=== PATIENT | female | born 1965 | race Caucasian/White ===

== ENCOUNTER 2016-12-11 09:17 | Emergency (ER) | payer MEDICARE, OTHER ==
[~2016-12-11] VITALS: Ht 162.6 cm; Wt 50.0 kg
[~2016-12-11 09:17] MED LIST: DEXT15TA PO; GUAI600; GUAISOL PO; NORC7.5T PO; TIOT18I; VALI10TA PO; ZITH250T PO
[2016-12-11 09:19] VITALS: BP 137/76; PULSE 95; RESP 20; TEMP 97.5; O2SAT 99
[2016-12-11] MEDS ORDERED: SODIUM CHLORIDE 0.9% FLUSH 5 ML FLUSH IVF PRN (09:30)
[2016-12-11] MEDS ORDERED: SPIRCAP INH (09:36)
[2016-12-11] MEDS ORDERED: ADDE30TA PO (09:36)
[2016-12-11 09:47] VITALS: O2SAT 96
--- NOTE | 2016-12-11 09:52 | PD ---
HPI Chief Complaint: Flank/Kidney Pain Time Seen by Provider: 09:32 Travel History International Travel<30 days: No Contact w/Intl Traveler<30days: No Traveled to known affect area: No History of Present Illness HPI Patient 51-year-old female with a history of kidney stones presents with few days history of right flank pain fever to 101 last night. She states this feels different than a kidney stone. Denies any dysuria. Does endorse vaginal bleeding which started 3 weeks ago. States she is postmenopausal. Denies any dysuria denies any vaginal discharge. States she told her primary care physician about the vaginal bleeding and they had recommended that she be evaluated by an [facility] which she has not done yet. She does endorse some mild nausea without vomiting. Denies any IV drug use. States pain is coming going. PFSH Past Medical History ADHD: Yes COPD: Yes Musculoskeletal: Yes (chronic pain) Respiratory: Yes (EMPHYSEMA) Influenza Vaccination: No ?: Not Menopausal: Yes : 2 Para: 1 Miscarriage: 1 : 0 Tubal Ligation: Yes Past Surgical History Joint Replacement: Yes (BILATERAL THUMBS) Social History Alcohol Use: Yes (SOCIALLY) Tobacco Use: Yes (OCCASIONAL) Substance Use: Yes (MARIJUANA) Allergies-Medications (Allergen,Severity, Reaction): Coded Allergies: No Known Allergies (Unverified , 12/11/16) Reported Meds & Prescriptions Reported Meds & Active Scripts Active Golytely 236 gm (Polyethylene Glycol/Electrolytes) 4,000 Ml Soln 4,000 Ml PO ONCE Levaquin (Levofloxacin) 750 Mg Tab 750 Mg PO DAILY 7 Days Reported Spiriva Handihaler (Tiotropium Inh) 18 Mcg Cap 18 Mcg INH DAILY 1 capsule = 18 mcg Adderall (Amphetamine-Dextroamphetamine) 30 Mg Tab 30 Mg PO DAILY Avoid late evening doses. Space doses at least 4 to 6 hours if more than once/day dosing. Review of Systems Except as stated in HPI: all other systems reviewed are Neg Physical Exam Narrative GENERAL: Well-developed well-nourished no apparent distress SKIN: Warm and dry. HEAD: Atraumatic. Normocephalic. EYES: Pupils equal and round. No scleral icterus. No injection or drainage. ENT: No nasal bleeding or discharge. Mucous membranes pink and moist. NECK: Trachea midline. No JVD. CARDIOVASCULAR: Regular rate and rhythm. No murmur appreciated. RESPIRATORY: No accessory muscle use. Clear to auscultation. Breath sounds equal bilaterally. GASTROINTESTINAL: Abdomen soft, non-tender, nondistended. Hepatic and splenic margins not palpable. Right-sided CVA tenderness, negative on the left. Abdomen soft nontender. No peritoneal signs. MUSCULOSKELETAL: No obvious deformities. No clubbing. No cyanosis. No edema. NEUROLOGICAL: Awake and alert. No obvious cranial nerve deficits. Motor grossly within normal limits. Normal speech. PSYCHIATRIC: Appropriate mood and affect; insight and judgment normal. Data Data Last Documented VS Vital Signs Date Time Temp Pulse Resp B/P Pulse Ox O2 Delivery O2 Flow Rate FiO2 12/11/16 11:48 82 16 108/66 97 Room Air 12/11/16 09:19 97.5 Orders Complete Blood Count With Diff (12/11/16 09:23) Comprehensive Metabolic Panel (12/11/16 09:23) Urinalysis - C+S If Indicated (12/11/16 09:23) Iv Access Insert/Monitor (12/11/16 09:23) Ecg Monitoring (12/11/16 09:23) Oximetry (12/11/16 09:23) Sodium Chloride 0.9% Flush (Ns Flush) (12/11/16 09:30) Ed Urine Pregnancytest Poc (12/11/16 09:23) Ketorolac Inj (Toradol Inj) (12/11/16 10:00) Ondansetron Inj (Zofran Inj) (12/11/16 10:00) Ct Abd/Pel W/O Iv Contrast (12/11/16 ) Chest, Pa & Lat (12/11/16 ) Labs Laboratory Tests Test 12/11/16 09:45 White Blood Count 7.1 TH/MM3 Red Blood Count 5.01 MIL/MM3 Hemoglobin 15.4 GM/DL Hematocrit 45.5 % Mean Corpuscular Volume 90.8 FL Mean Corpuscular Hemoglobin 30.7 PG Mean Corpuscular Hemoglobin 33.8 % Concent Red Cell Distribution Width 14.0 % Platelet Count 235 TH/MM3 Mean Platelet Volume 8.1 FL Neutrophils (%) (Auto) 81.3 % Lymphocytes (%) (Auto) 13.8 % Monocytes (%) (Auto) 3.4 % Eosinophils (%) (Auto) 1.1 % Basophils (%) (Auto) 0.4 % Neutrophils # (Auto) 5.7 TH/MM3 Lymphocytes # (Auto) 1.0 TH/MM3 Monocytes # (Auto) 0.2 TH/MM3 Eosinophils # (Auto) 0.1 TH/MM3 Basophils # (Auto) 0.0 TH/MM3 CBC Comment DIFF FINAL Differential Comment Urine Color YELLOW Urine Turbidity HAZY Urine pH 6.5 Urine Specific [place] 1.023 Urine Protein TRACE mg/dL Urine Glucose (UA) NEG mg/dL Urine Ketones NEG mg/dL Urine Occult Blood TRACE Urine Nitrite NEG Urine Bilirubin NEG Urine Urobilinogen 2.0 MG/DL Urine Leukocyte Esterase NEG Urine RBC 2 /hpf Urine WBC LESS THAN 1 /hpf Urine Squamous Epithelial 24 /hpf Cells Urine Bacteria RARE /hpf Urine Mucus FEW /lpf Microscopic Urinalysis Comment CULT NOT INDICATED Sodium Level 137 MEQ/L Potassium Level 4.2 MEQ/L Chloride Level 102 MEQ/L Carbon Dioxide Level 28.7 MEQ/L Anion Gap 6 MEQ/L Blood Urea Nitrogen 14 MG/DL Creatinine 1.06 MG/DL Estimat Glomerular Filtration 55 ML/MIN Rate Random Glucose 80 MG/DL Calcium Level 8.6 MG/DL Total Bilirubin 0.4 MG/DL Aspartate Amino Transf 46 U/L (AST/SGOT) Alanine Aminotransferase 43 U/L (ALT/SGPT) Alkaline Phosphatase 102 U/L Total Protein 8.0 GM/DL Albumin 3.8 GM/DL [facility] Medical Decision Making Medical Screen Exam Complete: Yes Emergency Medical Condition: Yes Differential Diagnosis Pneumonia, kidney stone, urinary tract infection, pyelonephritis. Narrative Course Patient roomed emergency department, labs are reassuring. Urine highly contaminated without evidence of urinary tract infection. Last 24 hours Impressions Chest X-Ray 12/11/16 0000 Signed Impressions: Service Date/Time: Sunday, December 11, 2016 11:29 - CONCLUSION: Minimal prominence of interstitium which may represent some underlying chronic bronchitis. No focal consolidation is seen. Weston Gtz MD Abdomen/Pelvis CT 12/11/16 0000 Signed Impressions: Service Date/Time: Sunday, December 11, 2016 10:07 - CONCLUSION: 1. No acute intraabdominal abnormality is seen. 2. Two focal hepatic lesions. These are nonspecific. They could be further evaluated with a MRI examination of the abdomen at some point. This could be performed as an outpatient. 3. Increased density seen in the posterior lung bases bilaterally representing areas of mild atelectasis or consolidation. Weston Gtz MD History of better after Toradol and Zofran. Discussed the CT findings including the 2 focal hepatic lesions which need to be followed up with an outpatient basis. No kidney stones seen. There is either atelectasis or consolidation of the lower lung gan. Chest x-ray is clear though. She did have fever yesterday. Low risk by PSI and curb 65. Reasonable to start antibiotics and discharged home. Discussed need for follow-up the primary care physician and return to ED criteria. Diagnosis Primary Impression: Pneumonia Qualified Code: J18.9 - Pneumonia due to infectious organism, unspecified laterality, unspecified part of lung Additional Impressions: Right flank pain Constipation Qualified Code: K59.00 - Constipation, unspecified constipation type Additional Instructions: There are 2 nodules on your liver recommend follow this up with her primary care physician. Med/Other Pt SpecificInfo: Prescription(s) given Scripts Peg-Electrolytes (Golytely 236 gm)4,000 Ml Soln4,000 Ml PO ONCE #1 CONTAINER Ref 0 Prov:Jimmy Mayes MD 12/11/16 Levofloxacin (Levaquin)750 Mg Fgm956 Mg PO DAILY 7 Days Ref 0 Prov:Jimmy Mayes MD 12/11/16 Disposition: 01 DISCHARGE HOME Condition: Stable Jimmy Mayes MD Dec 11, 2016 09:52
[2016-12-11 09:57] LABS: AUTOMATED NEUTROPHIL # 5.7 TH/MM3 (1.8-7.7); BASOPHIL % 0.4 % (0.0-2.0); EOSINOPHIL # 0.1 TH/MM3 (0-0.4); EOSINOPHIL % 1.1 % (0.0-4.0); HEMATOCRIT 45.5 % (35.0-46.0); HEMO FLAGS DIFF FINAL; LYMPH % 13.8 % (9.0-44.0); MEAN CELL VOLUME 90.8 FL (80.0-100.0); MEAN CORPUSCULAR HEMOGLOBIN 30.7 PG (27.0-34.0); MEAN CORPUSCULAR HGB CONC 33.8 % (32.0-36.0); MONO % 3.4 % (0.0-8.0); NEUT % 81.3 % (16.0-70.0); PLATELET COUNT 235 TH/MM3 (150-450); RED BLOOD COUNT 5.01 MIL/MM3 (4.00-5.30); WHITE BLOOD COUNT 7.1 TH/MM3 (4.0-11.0)
[2016-12-11] MEDS ORDERED: ONDANSETRON HCL 4 MG/2 ML VIAL IV PUSH ONE (10:00)
[2016-12-11] MEDS ORDERED: KETOROLAC TROMETHAMINE 30 MG/ML (IVP) VIAL IV PUSH ONE (10:00)
[2016-12-11 10:01] LABS: BACTERIA, URINE RARE /hpf; BLOOD, URINE TRACE (NEG); COMMENT (UR) CULT NOT INDICATED; CULTURE IF INDICATED CULT NOT INDICATED; GLUCOSE,URINE NEG (NEG); KETONE, URINE NEG (NEG); MUCUS URINE FEW /lpf (OCC); NITRITE,URINE NEG (NEG); PH, URINE 6.5 (5.0-8.5); SQUAMOUS EPITHELIAL CELL URINE 24 /hpf (0-5); URINE COLOR YELLOW (YELLW/STRAW)
[2016-12-11 10:24] LABS: ALKALINE PHOSPHATASE 102 U/L (45-117); ALT (GPT) 43 U/L (10-53); ANION GAP 6 MEQ/L (5-15); AST (GOT) 46 U/L (15-37); BICARBONATE 28.7 MEQ/L (21.0-32.0); BLOOD UREA NITROGEN 14 MG/DL (7-18); CHLORIDE 102 MEQ/L (98-107); GLOMERULAR FILTRATION RATE 55 ML/MIN (>89); SODIUM (NA) 137 MEQ/L (136-145); TOTAL BILIRUBIN ADULT 0.4 MG/DL (0.2-1.0)
[2016-12-11 10:25] LABS: POTASSIUM 4.2 MEQ/L (3.5-5.1)
--- NOTE | 2016-12-11 10:48 | RADRPT ---
EXAM DATE/TIME: 12/11/2016 10:07 [facility] COMPARISON: No previous studies available for comparison. INDICATIONS: Right flank pain. ORAL CONTRAST: No oral contrast ingested. RADIATION DOSE: 13.28 CTDIvol (mGy) MEDICAL HISTORY: None SURGICAL HISTORY: None. ENCOUNTER: Initial ACUITY: 1 week PAIN SCALE: 4/10 LOCATION: Right flank TECHNIQUE: Volumetric scanning of the abdomen and pelvis was performed. Using automated exposure control and ad justment of the mA and/or kV according to patient size, radiation dose was kept as low as reasonably achievable to obtain optimal diagnostic quality images. FINDINGS: There are two focal hepatic lesions measuring 1.6 cm and 1.5 cm in the lateral right lobe. These are nonspecific. Gallbladder is unremarkable for CT examination. The spleen, pancreas, adrenal glands are kidneys are normal. No stones are seen. There is no hydronephrosis. There is scattered atherosclerotic calcifications s een in the arterial system. No aneurysm seen. The bowel appears grossly normal. Significant inflammatory solano ge in not seen. The pelvic structures appear intact. There is increased density seen at the posterior lung bases bilaterally being more prominent on the r ight. There is mild degenerative change in the lower lumbar spine. CONCLUSION: 1. No acute intraabdominal abnormality is seen. 2. Two focal hepatic lesions. These are nonspecific. They could be further evaluated with a MRI ex amination of the abdomen at some point. This could be performed as an outpatient. 3. Increased density seen in the posterior lung bases bilaterally representing areas of mild atelect asis or consolidation. Weston Gtz MD on December 11, 2016 at 10:30 Board Certified Radiologist. This report was verified electronically.
[2016-12-11] MEDS ORDERED: LEVA750T PO (11:24)
[2016-12-11] MEDS ORDERED: COLY4000S PO (11:31)
--- NOTE | 2016-12-11 11:47 | RADRPT ---
EXAM DATE/TIME: 12/11/2016 11:29 [facility] COMPARISON: CT PULMONARY ANGIOGRAM, May 24, 2014, 8:56. CHEST PA & LAT, May 24, 2014, 7:34. INDICATIONS : Short of breath. MEDICAL HISTORY : None. SURGICAL HISTORY : Breast implants. ENCOUNTER: Initial ACUITY: 1 week PAIN SCORE: 7/10 LOCATION: Right lower chest FINDINGS: The heart size is normal. No focal consolidation is seen. There is some minimal prominence of the int erstitium. No effusion is seen. CONCLUSION: Minimal prominence of interstitium which may represent some underlying chronic bronchitis. No focal c onsolidation is seen. Weston Gtz MD on December 11, 2016 at 11:42 Board Certified Radiologist. This report was verified electronically.
[2016-12-11 11:48] VITALS: BP 108/66; PULSE 82; RESP 16; O2SAT 97
== END 2016-12-11 11:52 | disposition home or self-care (01) ==
LOC: NEPA 09:17
DX: J18.9 Pneumonia, unspecified organism (principal); R10.9 Unspecified abdominal pain; K59.00 Constipation, unspecified; K76.9 Liver disease, unspecified; N93.9 Abnormal uterine and vaginal bleeding, unspecified; Z78.0 Asymptomatic menopausal state; Z72.0 Tobacco use; Z87.09 Personal history of other diseases of the respiratory system; Z87.39 Personal history of other diseases of the musculoskeletal system and connective tissue; Z86.59 Personal history of other mental and behavioral disorders
CPT/HCPCS: 71020; 74176; 80053; 81001; 84703; 85025; 96374; 96375; 99284; J1885; J2405